=== PATIENT | female | born 1980 | race Caucasian/White ===

== ENCOUNTER 2016-10-15 04:40 | Emergency (ER) | payer MEDICARE ==
[~2016-10-15] VITALS: Ht 160 cm; Wt 76.0 kg
[2016-10-15 04:42] VITALS: BP 161/101; PULSE 131; RESP 18; TEMP 98.9; O2SAT 97
[2016-10-15] MEDS ORDERED: PREN29TA PO (04:53)
[2016-10-15] MEDS ORDERED: CLIN150 PO (05:00)
[2016-10-15] MEDS ORDERED: CLINDAMYCIN INJ 600 MG in SODIUM CHLORIDE 0.9% INJ 100 ML IV ONE (05:00)
--- NOTE | 2016-10-15 05:16 | PD ---
HPI Chief Complaint: Oral / Dental Pain or Problem Time Seen by Provider: 05:10 Travel History International Travel<30 days: No Contact w/Intl Traveler<30days: No Traveled to known affect area: No History of Present Illness HPI 36-year-old female 5, para 4 with a 17 week . Patient has had no care. She states that over last 4 days she's noticed increasing right facial pain. Since yesterday she's had increasing swelling to the right cheek. Pain is mild to moderate. No fever chills. No nausea vomiting. No abdominal pain. No leakage of fluid or vaginal bleeding. No urinary symptoms. PFSH Past Medical History Narrative Medical Trauma with bilateral below the knee amputations Diminished Hearing: No Tetanus Vaccination: Unknown Influenza Vaccination: No ?: LMP: 06/16/16 Past Surgical History Narrative Surgical , bilateral below the knee amputations Section: Yes Other Surgery: Yes (BREAST REDUCTION ) Social History Alcohol Use: No Tobacco Use: No Substance Use: No Allergies-Medications (Allergen,Severity, Reaction): Coded Allergies: No Known Allergies (Unverified , 10/15/16) Reported Meds & Prescriptions Reported Meds & Active Scripts Active Cleocin (Clindamycin HCl) 150 Mg Cap 300 Mg PO Q6H Reported Plus Iron 29-1 mg ( Vit-Iron Carbonyl) 1 Tab Tab 1 Tab PO DAILY Review of Systems Except as stated in HPI: all other systems reviewed are Neg Physical Exam Narrative GENERAL: Well-developed, well-nourished in no acute distress. Nontoxic appearing. HEAD: Normocephalic, patient has mild swelling to the right cheek with tenderness. The skin is indurated. No fluctuance or pointing. EYES: Pupils equal round and reactive. Extraocular motions intact. No scleral icterus. No injection or drainage. ENT: TMs clear without erythema. The external auditory canals clear. Nose: clear . Posterior pharynx is pink and moist. No tonsillar edema or exudate. Uvula midline. Airway patent. The patient has a large dental abscess to tooth # 4. There is gingival erythema and edema. Obvious abscess. NECK: Trachea midline.Supple, nontender, moves head freely. No central bony tenderness or spasm. CARDIOVASCULAR: Regular rate and rhythm without murmurs, gallops, or rubs. RESPIRATORY: Clear to auscultation. Breath sounds equal bilaterally. No wheezes , rales, or rhonchi. GASTROINTESTINAL: Abdomen soft, non-tender, gravid. No guarding. EXTREMITIES: No clubbing, cyanosis, or edema. Bilateral below the knee amputations. BACK: Nontender without deformity or crepitance. No flank tenderness. Data Data Last Documented VS Vital Signs Date Time Temp Pulse Resp B/P Pulse Ox O2 Delivery O2 Flow Rate FiO2 10/15/16 04:55 18 10/15/16 04:42 98.9 131 161/101 97 Room Air Orders Clindamycin Inj (Cleocin Inj) (10/15/16 05:00) MDM Medical Decision Making Medical Screen Exam Complete: Yes Emergency Medical Condition: Yes Medical Record Reviewed: Yes Differential Diagnosis MDM: Moderate Differential diagnoses: Dental abscess, dental caries, osteitis, cellulitis Narrative Course IV access is obtained. Patient's given clindamycin 600 mg IV. This is dental abscess with facial cellulitis, Diagnosis Primary Impression: dental abscess with facial cellulitis Additional Impression: Qualified Code: [id number] - 17 weeks gestation of Patient Instructions: General Instructions Additional Instructions: Rest. [place] gargles. [place] oil on cotton balls. Clindamycin. Tylenol for pain. follow-up with a dentist as soon as possible. And return to the ER if any problems. Med/Other Pt SpecificInfo: Prescription(s) given Scripts Clindamycin (Cleocin)150 Mg [id number] Mg PO Q6H #80 CAP Prov:Chen Charles MD 10/15/16 Disposition: 01 DISCHARGE HOME Condition: Stable [place] October 15, 2016 05:16
== END 2016-10-15 06:04 | disposition home or self-care (01) ==
LOC: NEPK 04:40
DX: O99.89 Other specified diseases and conditions complicating pregnancy, childbirth and the puerperium (principal); K04.7 Periapical abscess without sinus; L03.211 Cellulitis of face; Z89.512 Acquired absence of left leg below knee; Z89.511 Acquired absence of right leg below knee; Z3A.17 17 weeks gestation of pregnancy
CPT/HCPCS: 96365